=== PATIENT | female | born 1955 | race Caucasian/White ===

== ENCOUNTER 2022-02-21 19:09 | Inpatient (IN) | payer OTHER ==
[2022-02-21 19:18] VITALS: BMI 34.3
[2022-02-21] MEDS ORDERED: morphine CARPU-JECT 4 MG/1 ML DISP.SYRIN IVPUSH ONE (20:43)
[2022-02-21] MEDS ORDERED: VANCOMYCIN 1 GM in D5W (PRE-DOCKED) 1,000 MG/250 ML IVPB ONE (20:46)
[2022-02-21] MEDS ORDERED: CEFEPIME HCL/D5W 2 GM/50 ML BAG IVPB ONE (20:47)
[2022-02-21] MEDS ORDERED: PIPERACILLIN/TAZOB 4.5 GM 4.5 GM in DEXTROSE 5%-WATER 100 ML IVPB ONE (21:04)
[2022-02-21] MEDS ORDERED: morphine SULFATE 4 MG/ML VIAL ONE (21:14)
[2022-02-21 22:05] LABS: BASO % 0.8 % (0-2.0); EOS % 4.6 % (0-4.5); HEMATOCRIT 35.2 % (32.4-45.2); HEMOGLOBIN 11.3 GM/dL (10.7-15.3); LYMPH % 25.4 % (8-40); MEAN CELL VOLUME 78.3 fl (80-96); MEAN PLT VOLUME 7.8 fl (7.5-11.1); MONO % 7.1 % (3.8-10.2); NEUT % 62.1 % (42.8-82.8); PLATELET COUNT 363 10^3/uL (134-434); RBC 4.49 M/mm3 (3.60-5.2); RDW 19.7 % (11.6-15.6); WHITE BLOOD COUNT 10.8 K/mm3 (4.0-10.0)
[2022-02-21 22:11] LABS: INR 1.03 (0.83-1.09); PROTHROMBIN TIME (PATIENT) 11.8 SEC (9.7-13.0)
[2022-02-21 22:14] LABS: ACTIVATED PTT 30.9 SECONDS (25.2-36.5)
[2022-02-21 22:20] LABS: ALBUMIN 3.6 g/dl (3.4-5.0); CALCIUM 9.9 mg/dL (8.5-10.1)
[2022-02-21 22:21] LABS: BLOOD UREA NITROGEN 24.8 mg/dL (7-18)
[2022-02-21 22:24] LABS: CREATININE 1.2 mg/dL (0.55-1.3)
[2022-02-21] MEDS ORDERED: PIPERACILLIN/TAZOB 4.5 GM 4.5 GM/100 ML BAG IVPB ONE (22:24)
[2022-02-21 22:25] LABS: BILIRUBIN,TOTAL 0.5 mg/dL (0.2-1); TOT PROT 8.3 g/dl (6.4-8.2)
[2022-02-21 22:59] LABS: ERYTHROCYTE SEDIMENTATION RATE 54 mm/hr (0-30)
[2022-02-22] MEDS ORDERED: VANCOMYCIN/WATER FOR INJ (PEG) 1,000 MG/200 ML BAG IVPB ONE (00:03)
[2022-02-22] MEDS ORDERED: VANCOMYCIN/WATER 1,250 MG/250 ML BAG IVPB SCH ×2 (05:15→12:00)
[2022-02-22 08:19] LABS: BASO % 0.8 % (0-2.0); HEMATOCRIT 35.3 % (32.4-45.2); HEMOGLOBIN 11.5 GM/dL (10.7-15.3); LYMPH % 21.3 % (8-40); MCH 25.8 pg (25.7-33.7); MCHC 32.7 g/dl (32.0-36.0); MEAN CELL VOLUME 78.9 fl (80-96); MEAN PLT VOLUME 7.4 fl (7.5-11.1); MONO % 7.2 % (3.8-10.2); NEUT % 64.7 % (42.8-82.8); PLATELET COUNT 325 10^3/uL (134-434); RBC 4.47 M/mm3 (3.60-5.2); RDW 19.7 % (11.6-15.6); WHITE BLOOD COUNT 9.4 K/mm3 (4.0-10.0)
[2022-02-22 08:25] LABS: ALBUMIN 3.4 g/dl (3.4-5.0); BLOOD UREA NITROGEN 26.4 mg/dL (7-18); CALCIUM 9.3 mg/dL (8.5-10.1); MAGNESIUM 2.1 mg/dL (1.8-2.4)
[2022-02-22 08:28] LABS: CREATININE 1.2 mg/dL (0.55-1.3); PHOSPHOROUS 4.8 mg/dL (2.5-4.9)
[2022-02-22 08:30] LABS: BILIRUBIN,TOTAL 0.3 mg/dL (0.2-1); TOT PROT 8.2 g/dl (6.4-8.2)
[2022-02-22] MEDS ORDERED: PIPERACILLIN/TAZOB 3.375 GM 3.375 GM in DEXTROSE 5%-WATER - 50 ML IVPB SCH (09:00)
[2022-02-22] MEDS: ACETAMINOPHEN 1000 MG/100 ML BAG IVPB PRN ×2 (09:14→19:34)
[2022-02-22] MEDS ORDERED: ENOXAPARIN NA (PORCINE) 40 MG/0.4 ML DISP.SYRIN SQ ONE (10:14)
[2022-02-22] MEDS ORDERED: PIPERACILLIN/TAZOB 3.375 GM 3.375 GM/50 ML BAG IVPB ONE (10:15)
[2022-02-22] MEDS: ENOXAPARIN NA (PORCINE) 40 MG/0.4 ML DISP.SYRIN SQ SCH (10:17)
[2022-02-22] MEDS: INSULIN SLIDING SCALE (NOVOLOG) 1 VIAL SQ SCH ×4 (10:40→21:03)
[2022-02-22] MEDS: VANCOMYCIN/WATER FOR INJ (PEG) 1,000 MG/200 ML BAG IVPB SCH (15:43)
[2022-02-22] MEDS: PIPERACILLIN/TAZOB 3.375 GM 3.375 GM in DEXTROSE 5%-WATER - 50 ML IVPB SCH (17:41)
[2022-02-23] MEDS ORDERED: KETOROLAC TROMETHAMINE 15 MG/ML VIAL IVPB ONE (01:00)
[2022-02-23] MEDS: PIPERACILLIN/TAZOB 3.375 GM 3.375 GM in DEXTROSE 5%-WATER - 50 ML IVPB SCH ×3 (02:15→18:04)
[2022-02-23] MEDS: VANCOMYCIN/WATER FOR INJ (PEG) 1,000 MG/200 ML BAG IVPB SCH ×2 (02:51→14:58)
[2022-02-23] MEDS: INSULIN SLIDING SCALE (NOVOLOG) 1 VIAL SQ SCH ×4 (06:31→23:00)
[2022-02-23 09:35] LABS: BASO % 0.6 % (0-2.0); EOS % 7.7 % (0-4.5); HEMATOCRIT 32.7 % (32.4-45.2); HEMOGLOBIN 10.2 GM/dL (10.7-15.3); LYMPH % 22.4 % (8-40); MCH 24.5 pg (25.7-33.7); MCHC 31.2 g/dl (32.0-36.0); MEAN CELL VOLUME 78.7 fl (80-96); MEAN PLT VOLUME 7.7 fl (7.5-11.1); MONO % 8.3 % (3.8-10.2); PLATELET COUNT 318 10^3/uL (134-434); RBC 4.15 M/mm3 (3.60-5.2); RDW 19.5 % (11.6-15.6); WHITE BLOOD COUNT 7.5 K/mm3 (4.0-10.0)
[2022-02-23] MEDS: ENOXAPARIN NA (PORCINE) 40 MG/0.4 ML DISP.SYRIN SQ SCH (09:51)
[2022-02-23 09:57] LABS: BLOOD UREA NITROGEN 26.2 mg/dL (7-18); CALCIUM 8.9 mg/dL (8.5-10.1); MAGNESIUM 2.1 mg/dL (1.8-2.4)
[2022-02-23 10:00] LABS: CREATININE 0.9 mg/dL (0.55-1.3)
[2022-02-23 10:01] LABS: BILIRUBIN,TOTAL 0.4 mg/dL (0.2-1); TOT PROT 7.3 g/dl (6.4-8.2)
[2022-02-23] MEDS ORDERED: KETOROLAC TROMETHAMINE 15 MG/ML VIAL IVPUSH ONE (11:05)
[2022-02-23] MEDS: traMADol HCL 50 MG TABLET PO PRN ×2 (11:07→20:50)
[2022-02-23] MEDS: NICOTINE 21 MG/24 HOURS TOPICAL PATCH TD SCH (11:40)
[2022-02-23] MEDS: GABAPENTIN 300 MG CAPSULE PO SCH ×2 (12:05→22:59)
[2022-02-23] MEDS: DULoxetine HCL 30 MG CAPSULE.DR PO SCH (12:05)
[2022-02-23] MEDS: busPIRone HCL 5 MG TABLET PO SCH ×2 (14:58→22:59)
[2022-02-23] MEDS ORDERED: ACETAMINOPHEN 1000 MG/100 ML BAG IVPB ONE (23:16)
[2022-02-24] MEDS: VANCOMYCIN/WATER FOR INJ (PEG) 1,000 MG/200 ML BAG IVPB SCH ×2 (01:44→17:59)
[2022-02-24] MEDS: PIPERACILLIN/TAZOB 3.375 GM 3.375 GM in DEXTROSE 5%-WATER - 50 ML IVPB SCH ×3 (01:44→17:19)
[2022-02-24] MEDS: traMADol HCL 50 MG TABLET PO PRN (04:34)
[2022-02-24] MEDS: busPIRone HCL 5 MG TABLET PO SCH ×3 (07:13→23:02)
[2022-02-24] MEDS: INSULIN SLIDING SCALE (NOVOLOG) 1 VIAL SQ SCH ×4 (07:14→23:03)
[2022-02-24] MEDS: GABAPENTIN 300 MG CAPSULE PO SCH ×3 (07:14→23:03)
[2022-02-24] MEDS ORDERED: morphine SULFATE 4 MG/ML VIAL IVPUSH ONE (08:15)
[2022-02-24] MEDS ORDERED: ACETAMINOPHEN 1000 MG/100 ML BAG IVPB PRN (08:15)
[2022-02-24] MEDS ORDERED: traMADol HCL 50 MG TABLET PO PRN (08:16)
[2022-02-24] MEDS: NICOTINE 21 MG/24 HOURS TOPICAL PATCH TD SCH (09:16)
[2022-02-24] MEDS: ENOXAPARIN NA (PORCINE) 40 MG/0.4 ML DISP.SYRIN SQ SCH (09:16)
[2022-02-24] MEDS: DULoxetine HCL 30 MG CAPSULE.DR PO SCH (09:16)
[2022-02-24] MEDS: DOCUSATE SODIUM 100 MG CAPSULE (FP) PO SCH (23:01)
[2022-02-24] MEDS: oxyCODONE HCL 5 MG TABLET PO PRN (23:04)
[2022-02-25] MEDS: PIPERACILLIN/TAZOB 3.375 GM 3.375 GM in DEXTROSE 5%-WATER - 50 ML IVPB SCH ×3 (02:18→17:26)
[2022-02-25] MEDS: GABAPENTIN 300 MG CAPSULE PO SCH ×3 (06:41→22:07)
[2022-02-25] MEDS: busPIRone HCL 5 MG TABLET PO SCH ×3 (06:41→22:07)
[2022-02-25] MEDS: VANCOMYCIN/WATER FOR INJ (PEG) 1,000 MG/200 ML BAG IVPB SCH ×2 (06:42→17:27)
[2022-02-25] MEDS: INSULIN SLIDING SCALE (NOVOLOG) 1 VIAL SQ SCH ×4 (06:42→22:13)
[2022-02-25] MEDS: DULoxetine HCL 30 MG CAPSULE.DR PO SCH (09:46)
[2022-02-25] MEDS: NICOTINE 21 MG/24 HOURS TOPICAL PATCH TD SCH (09:46)
[2022-02-25] MEDS: ENOXAPARIN NA (PORCINE) 40 MG/0.4 ML DISP.SYRIN SQ SCH (09:46)
[2022-02-25 11:35] LABS: BASO % 0.7 % (0-2.0); EOS % 6.9 % (0-4.5); HEMATOCRIT 31.8 % (32.4-45.2); LYMPH % 25.4 % (8-40); MCH 25.2 pg (25.7-33.7); MCHC 31.6 g/dl (32.0-36.0); MEAN CELL VOLUME 79.8 fl (80-96); MEAN PLT VOLUME 7.7 fl (7.5-11.1); MONO % 6.7 % (3.8-10.2); NEUT % 60.3 % (42.8-82.8); PLATELET COUNT 299 10^3/uL (134-434); RBC 3.98 M/mm3 (3.60-5.2); RDW 19.5 % (11.6-15.6); WHITE BLOOD COUNT 7.3 K/mm3 (4.0-10.0)
[2022-02-25 11:45] LABS: CALCIUM 8.5 mg/dL (8.5-10.1)
[2022-02-25 11:46] LABS: ALBUMIN 2.9 g/dl (3.4-5.0); BLOOD UREA NITROGEN 20.7 mg/dL (7-18)
[2022-02-25 11:49] LABS: CREATININE 0.8 mg/dL (0.55-1.3)
[2022-02-25 11:51] LABS: BILIRUBIN,TOTAL 0.4 mg/dL (0.2-1); TOT PROT 7.3 g/dl (6.4-8.2)
[2022-02-25] MEDS: oxyCODONE HCL 5 MG TABLET PO PRN (18:20)
[2022-02-25] MEDS: DOCUSATE SODIUM 100 MG CAPSULE (FP) PO SCH (22:07)
[2022-02-26] MEDS: PIPERACILLIN/TAZOB 3.375 GM 3.375 GM in DEXTROSE 5%-WATER - 50 ML IVPB SCH ×3 (02:18→17:04)
[2022-02-26] MEDS: GABAPENTIN 300 MG CAPSULE PO SCH ×3 (06:23→21:44)
[2022-02-26] MEDS: busPIRone HCL 5 MG TABLET PO SCH ×3 (06:23→21:45)
[2022-02-26] MEDS: VANCOMYCIN/WATER FOR INJ (PEG) 1,000 MG/200 ML BAG IVPB SCH ×2 (06:23→17:16)
[2022-02-26] MEDS: INSULIN SLIDING SCALE (NOVOLOG) 1 VIAL SQ SCH ×4 (06:39→21:54)
[2022-02-26] MEDS: NICOTINE 21 MG/24 HOURS TOPICAL PATCH TD SCH (10:05)
[2022-02-26] MEDS: ENOXAPARIN NA (PORCINE) 40 MG/0.4 ML DISP.SYRIN SQ SCH (10:06)
[2022-02-26] MEDS: DULoxetine HCL 30 MG CAPSULE.DR PO SCH (10:06)
[2022-02-26 10:44] LABS: BASO % 0.8 % (0-2.0); EOS % 7.8 % (0-4.5); HEMATOCRIT 30.2 % (32.4-45.2); HEMOGLOBIN 9.5 GM/dL (10.7-15.3); LYMPH % 27.3 % (8-40); MCH 24.9 pg (25.7-33.7); MCHC 31.6 g/dl (32.0-36.0); MEAN CELL VOLUME 78.9 fl (80-96); MEAN PLT VOLUME 7.6 fl (7.5-11.1); MONO % 6.6 % (3.8-10.2); NEUT % 57.5 % (42.8-82.8); PLATELET COUNT 322 10^3/uL (134-434); RBC 3.83 M/mm3 (3.60-5.2); RDW 19.8 % (11.6-15.6); WHITE BLOOD COUNT 7.3 K/mm3 (4.0-10.0)
[2022-02-26 11:12] LABS: ALBUMIN 2.8 g/dl (3.4-5.0)
[2022-02-26 11:13] LABS: BLOOD UREA NITROGEN 19.9 mg/dL (7-18)
[2022-02-26 11:14] LABS: BILIRUBIN,TOTAL 0.2 mg/dL (0.2-1); CREATININE 0.7 mg/dL (0.55-1.3)
[2022-02-26 11:15] LABS: CALCIUM 8.8 mg/dL (8.5-10.1); TOT PROT 6.8 g/dl (6.4-8.2)
[2022-02-26 11:16] LABS: MAGNESIUM 1.9 mg/dL (1.8-2.4)
[2022-02-26] MEDS: POLYETHYLENE GLYCOL (HEALTHYLAX) 3350 17 GM PACKET PO SCH (13:34)
[2022-02-26] MEDS: oxyCODONE HCL 5 MG TABLET PO PRN ×2 (13:57→21:46)
[2022-02-26] MEDS: DOCUSATE SODIUM 100 MG CAPSULE (FP) PO SCH (21:45)
[2022-02-27] MEDS: PIPERACILLIN/TAZOB 3.375 GM 3.375 GM in DEXTROSE 5%-WATER - 50 ML IVPB SCH ×4 (01:45→22:06)
[2022-02-27] MEDS: VANCOMYCIN/WATER FOR INJ (PEG) 1,000 MG/200 ML BAG IVPB SCH ×2 (05:33→17:12)
[2022-02-27] MEDS: busPIRone HCL 5 MG TABLET PO SCH ×3 (05:33→22:05)
[2022-02-27] MEDS: GABAPENTIN 300 MG CAPSULE PO SCH ×3 (05:33→22:06)
[2022-02-27] MEDS: INSULIN SLIDING SCALE (NOVOLOG) 1 VIAL SQ SCH ×4 (06:08→22:06)
[2022-02-27 08:23] LABS: BASO % 0.8 % (0-2.0); EOS % 8.1 % (0-4.5); HEMATOCRIT 30.5 % (32.4-45.2); HEMOGLOBIN 9.6 GM/dL (10.7-15.3); LYMPH % 28.4 % (8-40); MCH 24.8 pg (25.7-33.7); MCHC 31.6 g/dl (32.0-36.0); MEAN CELL VOLUME 78.5 fl (80-96); MEAN PLT VOLUME 7.6 fl (7.5-11.1); NEUT % 55.7 % (42.8-82.8); PLATELET COUNT 331 10^3/uL (134-434); RBC 3.88 M/mm3 (3.60-5.2); RDW 19.4 % (11.6-15.6); WHITE BLOOD COUNT 7.2 K/mm3 (4.0-10.0)
[2022-02-27 09:00] LABS: ALBUMIN 2.8 g/dl (3.4-5.0); BLOOD UREA NITROGEN 18.3 mg/dL (7-18); CALCIUM 8.9 mg/dL (8.5-10.1)
[2022-02-27 09:03] LABS: CREATININE 0.8 mg/dL (0.55-1.3)
[2022-02-27 09:05] LABS: BILIRUBIN,TOTAL 0.3 mg/dL (0.2-1)
[2022-02-27] MEDS: DULoxetine HCL 30 MG CAPSULE.DR PO SCH (09:23)
[2022-02-27] MEDS: POLYETHYLENE GLYCOL (HEALTHYLAX) 3350 17 GM PACKET PO SCH (09:24)
[2022-02-27] MEDS: oxyCODONE HCL 5 MG TABLET PO PRN ×2 (09:24→17:12)
[2022-02-27] MEDS: NICOTINE 21 MG/24 HOURS TOPICAL PATCH TD SCH (09:25)
[2022-02-27] MEDS: ENOXAPARIN NA (PORCINE) 40 MG/0.4 ML DISP.SYRIN SQ SCH ×2 (09:25→09:44)
[2022-02-27] MEDS ORDERED: LIDOCAINE HCL 1%, 10 MG/ML (20ML VIAL) ONE (13:32)
[2022-02-27] MEDS ORDERED: MIDAZOLAM HCL 2 MG/2 ML SINGLE DOSE VIAL ONE (13:35)
[2022-02-27] MEDS ORDERED: PROPOFOL 20 ML ONE (13:43)
[2022-02-27] MEDS ORDERED: LIDOCAINE HCL 1%, 10 MG/ML (20ML VIAL) INF ONE ×2 (13:45)
[2022-02-27] MEDS ORDERED: PROMETHAZINE HCL 25 MG/1 ML VIAL IVPUSH PRN (14:02)
[2022-02-27] MEDS ORDERED: ONDANSETRON 4 MG/2 ML VIAL IVPUSH PRN (14:02)
[2022-02-27] MEDS ORDERED: LACTATED RINGERS SOLUTION 1,000 ML IV SCH (14:15)
[2022-02-27 15:26] LABS: INR 0.97 (0.83-1.09); PROTHROMBIN TIME (PATIENT) 11.1 SEC (9.7-13.0)
[2022-02-27] MEDS ORDERED: INSULIN (NOVOLOG) ASPART 100 UNITS/ML 10ML VIAL ONE (21:20)
[2022-02-27 21:38] VITALS: RESP 20
[2022-02-27] MEDS ORDERED: DOCUSATE SODIUM 100 MG CAPSULE (FP) PO SCH (22:00)
[2022-02-28] MEDS: PIPERACILLIN/TAZOB 3.375 GM 3.375 GM in DEXTROSE 5%-WATER - 50 ML IVPB SCH ×2 (01:50→11:38)
[2022-02-28] MEDS: GABAPENTIN 300 MG CAPSULE PO SCH ×2 (05:18→13:27)
[2022-02-28] MEDS: VANCOMYCIN/WATER FOR INJ (PEG) 1,000 MG/200 ML BAG IVPB SCH (05:19)
[2022-02-28] MEDS: busPIRone HCL 5 MG TABLET PO SCH ×2 (05:19→13:27)
[2022-02-28] MEDS: INSULIN SLIDING SCALE (NOVOLOG) 1 VIAL SQ SCH ×2 (06:04→11:27)
[2022-02-28 06:50] VITALS: BP 162/62; PULSE 62; TEMP 98.1
[2022-02-28 09:58] LABS: BASO % 0.4 % (0-2.0); EOS % 9.2 % (0-4.5); HEMATOCRIT 31.3 % (32.4-45.2); LYMPH % 29.8 % (8-40); MCH 25.1 pg (25.7-33.7); MEAN CELL VOLUME 78.4 fl (80-96); MEAN PLT VOLUME 7.2 fl (7.5-11.1); MONO % 6.4 % (3.8-10.2); NEUT % 54.2 % (42.8-82.8); PLATELET COUNT 329 10^3/uL (134-434); RDW 20.2 % (11.6-15.6); WHITE BLOOD COUNT 7.6 K/mm3 (4.0-10.0)
[2022-02-28] MEDS ORDERED: NICOTINE 21 MG/24 HOURS TOPICAL PATCH TD SCH (10:00)
[2022-02-28] MEDS ORDERED: POLYETHYLENE GLYCOL (HEALTHYLAX) 3350 17 GM PACKET PO SCH (10:00)
[2022-02-28] MEDS ORDERED: DULoxetine HCL 30 MG CAPSULE.DR PO SCH (10:00)
[2022-02-28] MEDS ORDERED: ENOXAPARIN NA (PORCINE) 40 MG/0.4 ML DISP.SYRIN SQ SCH (10:00)
[2022-02-28 10:55] LABS: CALCIUM 8.9 mg/dL (8.5-10.1)
[2022-02-28 10:56] LABS: ALBUMIN 3.1 g/dl (3.4-5.0); BLOOD UREA NITROGEN 17.5 mg/dL (7-18)
[2022-02-28 10:59] LABS: CREATININE 0.8 mg/dL (0.55-1.3)
[2022-02-28 11:00] LABS: TOT PROT 7.2 g/dl (6.4-8.2)
[2022-02-28 11:01] LABS: BILIRUBIN,TOTAL 0.3 mg/dL (0.2-1)
[2022-02-28] MEDS: oxyCODONE HCL 5 MG TABLET PO PRN (11:12)
[2022-02-28] MEDS: CLINDAMYCIN HCL 150 MG CAPSULE (FP) PO SCH ×2 (11:27→13:27)
[2022-02-28] MEDS ORDERED: ACETAMINOPHEN 500 MG TABLET (FP) PO SCH (14:00)
== END 2022-02-28 16:14 | disposition home or self-care (01) | DRG 570 ==
LOC: JER 19:09 → JERBED 23:18 → J4S 02-22 14:37 → J8W 02-22 18:56 → UNDODISIN 02-28 15:00
PROVIDERS: ADMIT Internal Medicine; ATTEND Nurse Practitioner Family
PROC: 0JBN0ZZ Excision of Right Lower Leg Subcutaneous Tissue and Fascia, Open Approach (ICD-10-PCS; principal; 2022-02-27 13:45)
DX: L03.115 Cellulitis of right lower limb (principal); U07.1 COVID-19; L97.919 Non-pressure chronic ulcer of unspecified part of right lower leg with unspecified severity; I83.019 Varicose veins of right lower extremity with ulcer of unspecified site; E66.01 Morbid (severe) obesity due to excess calories; I10 Essential (primary) hypertension; A49.02 Methicillin resistant Staphylococcus aureus infection, unspecified site; F32.A Depression, unspecified; G62.9 Polyneuropathy, unspecified
CPT/HCPCS: 0241U-QW; 36415; 73590-TC-RT-FY; 73610-TC-RT-FY; 73630-TC-RT-FY; 73700-TC-RT; 80053; 82962; 83036; 83735; 84100; 85025; 85379; 85610; 85651; 85730; 86140; 86850; 86900; 86901; 87040; 87070; 87186; 87205; 93005; 93010; 94760; 99285-25; G0480